=== PATIENT | female | born 1965 | race Caucasian/White ===

== ENCOUNTER 2016-12-12 04:01 | Observation (INO) | payer BC ==
[2016-12-12] MEDS ORDERED: NS 0.9% 1000 ML* 2,000 ML IV ONE (05:08)
[2016-12-12] MEDS ORDERED: Morphine INJ* 4 MG/ML 1 ML CARPUJECT IV ONE (05:08)
[2016-12-12] MEDS ORDERED: Ketorolac INJ* 30 MG/ML 1 ML VIAL IV ONE (05:08)
[2016-12-12] MEDS ORDERED: Ondansetron INJ* 2 MG/ML VIAL IV ONE (05:08)
[2016-12-12 05:53] LABS: Hematocrit 46 % (35-47); Hemoglobin 15.4 g/dl (12.0-16.0); Mean Corpuscular HGB Conc 34 g/dl (31-36); Mean Corpuscular Hemoglobin 32 pg (27-31); Mean Corpuscular Volume 93 fL (80-97); Mean Platelet Volume 7 um3 (7.4-10.4); Red Blood Count 4.89 10^6/ul (4.0-5.4); Red Cell Distribution Width 14 % (10.5-15); White Blood Count 19.5 10^3/ul (3.5-10.8)
[2016-12-12 06:07] LABS: Albumin 3.7 g/dL (3.2-5.2); BUN/Creatinine Ratio 7.9 (8-20); C Reactive Protein 6.17 mg/L (< 5.00); Calcium 7.9 mg/dL (8.6-10.3); EGFR African American 57.3 (>60); EGFR Non-African American 44.6 (>60); Globulin 2.5 g/dL (2-4); Potassium 3.4 mmol/L (3.5-5.0); Total Bilirubin 0.3 mg/dL (0.2-1.0); Total Protein 6.2 g/dL (6.4-8.9)
[2016-12-12] MEDS ORDERED: Gentamicin ADULT (*) 40 MG/ML VIAL IVPB ONE (07:20)
[2016-12-12 07:54] LABS: Urine Bacteria 1+ (Absent); Urine Bilirubin Negative (Negative); Urine Glucose Negative (Negative); Urine Nitrite Negative (Negative)
[2016-12-12] MEDS ORDERED: Ondansetron INJ* 2 MG/ML VIAL IV PRN ×2 (08:18→10:27)
[2016-12-12] MEDS ORDERED: Morphine INJ* 4 MG/ML 1 ML CARPUJECT IV PRN (08:19)
--- NOTE | 2016-12-12 08:28 | RAD ---
INDICATION: Left flank abdominal pain. COMPARISON: There are no prior studies available for comparison. TECHNIQUE: A CT scan of the abdomen and pelvis was performed without intravenous or oral contrast. Contiguous axial sections were obtained from the lung bases through the symphysis pubis. Images were reconstructed in the coronal and sagittal planes. FINDINGS: The lung bases are clear. No pleural effusion is present. The liver and spleen are within normal limits in size without significant focal abnormality on this noncontrast study. There are gallstones present. No gallbladder wall thickening or pericholecystic fluid is seen. The pancreas appears to be within normal limits. The adrenal glands and right kidney appear normal. There are 2 calculi in the lower pole of the left kidney measuring up to 4 mm in size. The left kidney is enlarged with perinephric stranding. There is dilatation of the calyces and renal pelvis to the level of a 8 mm calculus at the ureteropelvic junction. This is causing moderate hydronephrosis. No additional ureteral or bladder calculi are seen. The abdominal aorta is normal in caliber. There is mild to moderate calcific plaque present. No significant enlarged retroperitoneal lymph nodes are seen. The stomach, small and large bowel appear nondistended. The patient is status post appendectomy by history. There are few scattered diverticula. There is no evidence for diverticulitis or colitis. The uterus is anteverted and normal in size. No free intraperitoneal air or fluid is seen. No significant focal osseous abnormality is seen. IMPRESSION: 1. MODERATE LEFT HYDRONEPHROSIS SECONDARY TO A 8 MM CALCULUS AT THE URETEROPELVIC JUNCTION. THERE ARE 2 ADDITIONAL SMALLER CALCULI IN THE LOWER POLE OF THE LEFT KIDNEY. 2. CHOLELITHIASIS.
[2016-12-12] MEDS ORDERED: Omeprazole CAP* 20 MG PO SCH (08:30)
[2016-12-12] MEDS ORDERED: NS 0.9% 1000 ML* 1,000 ML IV SCH (08:30)
[2016-12-12] MEDS ORDERED: DiMENhydriNATE IV* 50 MG/ML VIAL IV PUSH PRN (10:27)
[2016-12-12] MEDS ORDERED: Acetaminophen TAB* 325 MG PO PRN (10:27)
[2016-12-12] MEDS ORDERED: fentaNYL* 50 MCG/ML 2 ML VIAL (100 MCG VIAL) IV PRN (10:27)
[2016-12-12] MEDS ORDERED: Buffered Lidocaine 0.9% SYRIN* 5 ML/SYR SYRINGE INTRADERM ONE (10:27)
[2016-12-12] MEDS ORDERED: PROCHLORPERAZINE INJ 5 MG/ML 2 ML VIAL IV PRN (10:27)
[2016-12-12] MEDS ORDERED: fentaNYL* 50 MCG/ML 2 ML VIAL (100 MCG VIAL) ONE (12:32)
[2016-12-12] MEDS ORDERED: Midazolam* 1 MG/ML 2 ML VIAL (2 MG) ONE (12:32)
[2016-12-12] MEDS ORDERED: Famotidine IV* 10 MG/ML 2 ML (20 mg) ONE (12:32)
--- NOTE | 2016-12-12 12:35 | HP ---
CC: Dr. Reyna * HISTORY AND PHYSICAL/DISCHARGE SUMMARY: DATE OF ADMISSION: 12/12/16 PRIMARY CARE PHYSICIAN: Dr. Reyna. CHIEF COMPLAINT: Left flank and abdominal pain. HISTORY OF PRESENT ILLNESS: Ms. Alcala is a 51-year-old female with past medical history of GERD, Malcolm's esophagus, chronic back pain, depression, anxiety, who presents to the hospital with acute onset of back and stomach pain. Patient states she was in her usual state of health. Last night, she went to bed, she woke up at 2 a.m. with left flank pain. Over the following 10 minutes, this worsened significantly and began to radiate and involve the abdomen diffusely. She reports associated nausea. No emesis. No fever or chills. Denies any blood in the urine. No history of renal stones. Due to significant pain, she came to the emergency room for further evaluation. In the ED, patient underwent a CT scan that showed mild left hydronephrosis and perinephric inflammation with a 9 mm left ureteral stone. Dr. Ponce was consulted, who plans to take the patient to the OR. Hospitalist service was consulted to assist in admitting the patient. PAST MEDICAL HISTORY: GERD, Malcolm's esophagus, depression, anxiety, chronic back pain. Reports a history of Lyme disease. PAST SURGICAL HISTORY: Appendectomy, rotator cuff surgery, deviated septum repair, cervical fusion in July of this year. HOME MEDICATIONS: 1. Flexeril 10 mg 3 times daily as needed for pain. 2. Bupropion 300 mg in the morning, 150 mg in the evening. 3. Nexium 40 mg once daily. 4. Xanax 0.25 mg 3 times daily as needed for anxiety. 5. Oxy 5/325 one tablet by mouth every 4 to 6 hours as needed for pain. FAMILY HISTORY: Significant for mother with hypertension, lung cancer, thyroid issues. Father with CVA, GA, hypertension, diabetes. Maternal aunt with esophageal cancer. SOCIAL HISTORY: The patient is a former smoker about a 14-pack year history, quit 12 years ago. Reports rare alcohol use. Denies any illicit drug use. ALLERGIES: Reports no known drug allergies. REVIEW OF SYSTEMS: A 12-point review of systems is negative except for that noted in the HPI. PHYSICAL EXAMINATION GENERAL: The patient is a middle-aged female, lying in bed, in no apparent distress. VITAL SIGNS: On admission, temperature 96.3, heart rate of 88, respiratory rate of 24, O2 saturation 100% on room air, blood pressure 157/90. HEENT: Head: Normocephalic, atraumatic. Eyes: Pupils are equal, round and reactive to light and accommodation. Anicteric sclerae. ENT: Dry mucous membranes. NECK: No cervical adenopathy. LUNGS: Clear to auscultation bilaterally. No wheezes, rales, or rhonchi. CARDIOVASCULAR: Regular rate and rhythm. S1 and S2 present. No murmurs, gallops, or rubs. ABDOMEN: Soft, nondistended. Some mild trace tenderness diffusely. Left CVA tenderness. Bowel sounds positive. EXTREMITIES: No cyanosis, clubbing, or edema. NEUROLOGIC: The patient is alert and oriented x3. No focal neurological deficits. SKIN: Warm, dry, and well perfused. DIAGNOSTIC STUDIES/LAB DATA: White blood cell count of 19.5, hematocrit of 46 , platelets of 293 with a left shift, 85% neutrophils, no bands. INR 0.87. Sodium 138, potassium 3.4, chloride of 109, carbon dioxide 24, BUN of 10, creatinine of 1.26, glucose of 115, lactic acid of 1.1, calcium of 7.9. LFTs are within normal limits. CRP is 6. UA with 2+ blood, 3+ rbc's, trace wbc's, negative leuk esterase, negative nitrite. CT abdomen and pelvis done. Formal read is pending; however, [facility] read mild left hydronephrosis and perinephric inflammation with a 9 mm left ureteral stone. ASSESSMENT AND PLAN: Left ureteral stone with obstructive uropathy in a 51-year - old female with a past medical history of gastroesophageal reflux disease, chronic back pain, Malcolm's esophagus, depression, anxiety. 1. Left ureteral stone. Dr. Ponce is aware. He ordered ceftriaxone and gentamicin for the patient. Plan is to take to the OR this morning, likely for stent placement and obstruction resolution. Patient does have significant leukocytosis; however, this may be a stress reaction. UA does not show any signs of infection. We will discuss with Dr. Ponce after the procedure if he feels like there is a possible infectious etiology and the patient needs to stay for additional IV antibiotics. Keep NPO for now. She received 2 L of IV fluid in the emergency room. We will continue at 100 cc per hour for now. Morphine p.r.n. for analgesia. Zofran p.r.n. for nausea. 2. Gastroesophageal reflux disease. Continue PPI. 3. Depression. Continue home bupropion once able to take p.o. 3. Chronic pain. We will use morphine while patient is hospitalized, can resume her home pain medications on discharge. 4. DVT prophylaxis. SCDs. 5. Code status. Patient is a full code. TIME SPENT: Total time spent on this admission 45 minutes with over half the time spent [id number] with the patient counseling and coordinating care. ADDENDUM: Patient apparently on long-term ABx by Dr. Reyna for lyme disease. Dr. Ponce successfully placed L ureteral stent and he did not appreciate any obvious purulence behind the stone. Feels that she can be managed with outpatient ABx as she had some bacteria present on UA. Will discharge home with Bactrim (holding other chronic ABx for Lyme disease at this time) for additional 5 days and will f/u in the clinic with Dr. Ponce for stent removal. [id number]/CPS #: [id number] PUSHPA
[2016-12-12] MEDS ORDERED: Iohexol 180 (CONTRAST) 10 ML SDV IV ONE (12:44)
[2016-12-12] MEDS ORDERED: buPROPion SR TAB.SR* 150 MG PO SCH ×2 (13:00→21:00)
[2016-12-12] MEDS ORDERED: Dexamethasone IV* 4 MG/ML 1 ML (4 MG) ONE (13:29)
[2016-12-12] MEDS ORDERED: Lidocaine 2% PF * 5 ML VIAL ONE (13:29)
[2016-12-12] MEDS ORDERED: Propofol* 10 MG/ML 20 ML BTL IV PUSH ONE (13:29)
[2016-12-12] MEDS ORDERED: Ketorolac INJ* 30 MG/ML 1 ML VIAL ONE (13:29)
--- NOTE | 2016-12-12 14:11 | RAD ---
INDICATION: Ureteral stent placement. COMPARISON: Comparison is made with a prior CT of the abdomen and pelvis from December 12, 2016. TECHNIQUE: 8 seconds of intermittent fluoroscopic guidance were provided and 4 spot films of the abdomen were centered on the left side. FINDINGS: There is partial opacification of the left renal collecting system. There is dilatation of the renal pelvis and calyces consistent with hydronephrosis. Subsequently there is placement of a double-J stent catheter on the left side which demonstrates normal course. IMPRESSION: INTRAOPERATIVE CONTROL FILMS. CPT II Codes: 6045F
--- NOTE | 2016-12-12 15:04 | RAD ---
INDICATION: Left renal calculi status post placement. COMPARISON: Comparison is made with a prior CT of the abdomen and pelvis from December 12, 2016. TECHNIQUE: A frontal supine film of the abdomen was obtained. FINDINGS: The small bowel and colon appear nondistended. There is a ureteral stent present on the left side which demonstrates normal course. There is a 6 mm calculus adjacent to the proximal portion of the stent catheter and a 3 mm calculus which projects over the lower pole of the left kidney. IMPRESSION: STATUS POST STENT PLACEMENT, LEFT URETERAL AND RENAL CALCULI.
[2016-12-12 16:17] VITALS: BP 159/85
--- NOTE | 2016-12-12 17:51 | CONS ---
CC: Dr. Shmuel Reyna; Dr. Bry Ponce * UROLOGY CONSULTATION: DATE OF CONSULT: 12/12/16 DIAGNOSES: 1. Left hydronephrosis. 2. Large obstructing calculus, left proximal ureter. 3. Left renal calculi. REQUESTING PHYSICIAN: Dr. Jaren Knowles. HISTORY OF PRESENT ILLNESS: Sonya Alcala is a 51-year-old lady, who presented to the emergency room with left flank pain and nausea. CT scan revealed fairly large calculus reported as 8 mm (but to my interpretation more, 10 to 12 mm) in the left proximal ureter with additional left renal calculi and left hydronephrosis. In addition, her white count is elevated to 19.5 and urine showed 1+ bacteria. She is being brought in for urgent left stent insertion to be followed in the near future at some point by lithotripsy. PAST MEDICAL HISTORY: Significant for: 1. Anxiety, depression. 2. Chronic back pain. 3. Lyme disease. PAST SURGICAL HISTORY: Significant for: 1. Recent cervical spine diskectomy and fusion. 2. Appendectomy. 3. Rhinoplasty. 4. Rotator cuff repair. MEDICATIONS ON ADMISSION: 1. Doxycycline 100 mg twice a day. 2. Erythromycin daily. 3. Flexeril 10 mg 3 times a day. 4. Nexium 40 mg daily. 5. Percocet p.r.n. 6. Wellbutrin SR 150 mg daily. 7. Xanax 0.25 mg p.r.n. 3 times a day. ALLERGIES: No known drug allergies. FAMILY HISTORY: Negative for stones. REVIEW OF SYSTEMS: She denies any chest pain or shortness of breath. There is no history of diabetes mellitus. PHYSICAL EXAM: Reveals a pleasant, uncomfortable appearing middle-aged lady. Blood pressure is 140/80, pulse 84 per minute, temperature 37.2. Cardiovascular Exam: Regular rate and rhythm. S1 and S2. Lungs are clear bilaterally. Abdomen is soft with left flank tenderness. DIAGNOSTIC STUDIES/LAB DATA: I reviewed the labs which revealed a white count of 19.5 and the urinalysis which showed 1+ bacteria. I also reviewed the CT scan and had a detailed discussion with Sonya Alcala regarding the findings on CT scan and the labs. PLAN: The plan is for urgent left stent insertion to be followed at some point in the future by lithotripsy once the infection has been adequately treated. [id number]/[facility] #: [id number] [facility]
--- NOTE | 2016-12-13 00:14 | OP ---
CC: Dr. Reyna * DATE OF OPERATION: 12/12/16 - ROOM #333 DATE OF : 63 SURGEON: Bry Ponce MD ANESTHESIOLOGIST: Dr. Issa. ANESTHESIA: General. PRE-OP DIAGNOSES: 1. Obstructing calculus, left proximal ureter. 2. Left hydronephrosis. 3. Left renal calculi. POST-OP DIAGNOSES: 1. Obstructing calculus, left proximal ureter. 2. Left hydronephrosis. 3. Left renal calculi. OPERATIVE PROCEDURE: Cystoscopy, left retrograde pyelogram, left ureteral calculus manipulation, and left stent insertion. COMPLICATIONS: None. STENT USED: 7-Fijian stent, left ureter. POSTOPERATIVE CONDITION: Stable. INDICATIONS: Sonya Alcala is a 51-year-old lady who was evaluated for an obstructing left proximal ureteral calculus. She is being brought in for urgent left stent insertion to be followed by lithotripsy. DESCRIPTION OF PROCEDURE: After induction of general anesthesia, the patient was placed in dorsal lithotomy position. Sequential compression devices were in place and functioning. Initial cystoscopy revealed a normal-appearing bladder with normally located right and left ureteral orifices. The bladder mucosa seemed a little bit friable with some oozing noted just with the filling of the bladder. A left retrograde pyelogram revealed fullness of the left collecting system and the calculus could be seen on the heel cutter film. The calculus was carefully manipulated proximally and a 7-Fijian stent was introduced and positioned under fluoroscopy with good proximal and distal positioning obtained. The bladder was emptied. The patient tolerated the procedure satisfactorily and was transferred back to recovery area in stable condition. The plan is to bring her back in a next week or two for lithotripsy as an outpatient. [id number]/[facility] #: [id number] MTDD
[2016-12-13] MEDS ORDERED: cefTRIAXone VIAL(*) 1,000 MG in NS 0.9% 50 ML* 50 ML IVPB SCH (08:00)
== END 2016-12-12 16:45 | disposition home or self-care (01) ==
LOC: ED 04:01 → SSU 08:04
PROVIDERS: ADMIT Hospitalist; ATTEND Hospitalist
DX: N13.2 Hydronephrosis with renal and ureteral calculous obstruction (principal); R10.32 Left lower quadrant pain; R11.0 Nausea; F41.8 Other specified anxiety disorders; M54.9 Dorsalgia, unspecified; A69.20 Lyme disease, unspecified; Z79.899 Other long term (current) drug therapy; Z79.2 Long term (current) use of antibiotics
CPT/HCPCS: 36415; 74000; 74176; 74420; 80053; 81003; 81015; 83605; 83690; 84484; 85025; 85610; 85730; 86140; 87086; 94760; 96374; 96375; 99284; A9270-GY; C1876; G0378; J0696; J1100; J1580; J1885; J2250; J2270; J2405; J2704; J3010

== ENCOUNTER 2016-12-20 12:40 | Day surgery (SDC) | payer BC ==
[~2016-12-20 12:40] MED LIST: Buffered Lidocaine 0.9% SYRIN* 5 ML/SYR SYRINGE INTRADERM ONE; Dexamethasone IV* 4 MG/ML 1 ML (4 MG) IV SLOW PU ONE; Famotidine IV* 10 MG/ML 2 ML (20 mg) IV ONE
[2016-12-20] MEDS ORDERED: cefTRIAXone(*) 2 GM ADDV.VIAL IVPB ONE (13:18)
[2016-12-20] MEDS ORDERED: Dexamethasone IV* 4 MG/ML 1 ML (4 MG) ONE (13:18)
[2016-12-20] MEDS ORDERED: Famotidine IV* 10 MG/ML 2 ML (20 mg) ONE (13:18)
[2016-12-20] MEDS ORDERED: Buffered Lidocaine 0.9% SYRIN* 5 ML/SYR SYRINGE ONE (13:18)
--- NOTE | 2016-12-20 13:43 | RAD ---
Indication: Renal calculus. Single view of the abdomen and straight calcification at the L2 level and in the lower pole of the left kidney. When compared to previous exam of December 12, 2016 no significant change is noted. IMPRESSION: Calcifications at the L2 level in the left ureter and overlying the lower pole of the left kidney.
[2016-12-20] MEDS ORDERED: fentaNYL* 50 MCG/ML 2 ML VIAL (100 MCG VIAL) ONE (13:48)
[2016-12-20] MEDS ORDERED: Midazolam* 1 MG/ML 2 ML VIAL (2 MG) ONE (13:48)
[2016-12-20] MEDS ORDERED: DiMENhydriNATE IV* 50 MG/ML VIAL IV PUSH PRN (14:12)
[2016-12-20] MEDS ORDERED: fentaNYL* 50 MCG/ML 2 ML VIAL (100 MCG VIAL) IV PRN (14:12)
[2016-12-20] MEDS ORDERED: Ondansetron INJ* 2 MG/ML VIAL ONE (14:42)
[2016-12-20] MEDS ORDERED: Propofol* 10 MG/ML 20 ML BTL IV PUSH ONE (14:42)
[2016-12-20 15:41] VITALS: BP 128/68
--- NOTE | 2016-12-20 16:19 | RAD ---
INDICATION: Left stent placement COMPARISON: December 20, 2016 TECHNIQUE: A single view of the abdomen is submitted. FINDINGS: Bones: There are no acute bony findings. Soft tissues: The soft tissues appear normal. The psoas margins are sharp. Bowel gas pattern: Normal Calcifications: There is a proximal left ureteral calculus unchanged in position. Other: The left stent is unchanged in position IMPRESSION: LEFT URETERAL CALCULUS AND STENT BOTH APPEARING UNCHANGED
--- NOTE | 2016-12-21 06:19 | OP ---
CC: Dr. Shmuel Reyna; Dr. Ponce* OPERATIVE SUMMARY: DATE OF OPERATION: 12/20/16 - [facility] DATE OF : 63 SURGEON: Bry Ponce MD ANESTHESIOLOGIST: Dr. Galeano. ANESTHESIA: General. PRE-OP DIAGNOSIS: Left renal calculi. POST-OP DIAGNOSIS: Left renal calculi. OPERATIVE PROCEDURE: Shockwave lithotripsy of left renal calculi. COMPLICATIONS: None. POSTOPERATIVE CONDITION: Stable. INDICATIONS: Sonya Alcala is a 51-year-old lady with a history of left renal calculi. She had undergone urgent stent insertion for an obstructing calculus in the left proximal ureter. In addition, she has small left renal calculi. DESCRIPTION OF PROCEDURE: After induction of general anesthesia, the patient was placed on the lithotripsy table in a supine position. The dominant calculus , which was in the area of the left ureteropelvic junction was localized using fluoroscopy. Shockwave lithotripsy was commenced at a rate of 90 shocks per minute. Periodic imaging revealed good localization and fragmentation and 2000 shocks were used for fragmentation of this calculus. Next, attention was directed towards additional small calculus in the mid-to- lower pole of the left kidney. This was localized using fluoroscopy and was targeted with 400 shocks. The patient tolerated the procedure satisfactorily and was transferred back to the recovery area in stable condition. [id number]/[facility] #: [id number] MTDD
== END 2016-12-20 15:51 | disposition home or self-care (01) ==
LOC: OR 12:40
PROVIDERS: ATTEND Urology
DX: N20.2 Calculus of kidney with calculus of ureter (principal); Z96.0 Presence of urogenital implants; F41.9 Anxiety disorder, unspecified; F32.9 Major depressive disorder, single episode, unspecified; G47.33 Obstructive sleep apnea (adult) (pediatric); Z87.891 Personal history of nicotine dependence; K22.70 Barrett's esophagus without dysplasia
CPT/HCPCS: 74000; 81025; J0696; J1100; J2250; J2405; J2704; J3010

== ENCOUNTER 2017-01-09 23:21 | Observation (INO) | payer BC ==
[2017-01-10] MEDS ORDERED: NS 0.9% 1000 ML* 1,000 ML IV ONE (01:28)
[2017-01-10] MEDS ORDERED: Ketorolac INJ* 30 MG/ML 1 ML VIAL IV PUSH ONE (01:28)
[2017-01-10 01:43] LABS: Hematocrit 46 % (35-47); Hemoglobin 15.4 g/dl (12.0-16.0); Mean Corpuscular HGB Conc 33 g/dl (31-36); Mean Corpuscular Hemoglobin 31 pg (27-31); Mean Corpuscular Volume 93 fL (80-97); Mean Platelet Volume 7 um3 (7.4-10.4); Red Blood Count 4.96 10^6/ul (4.0-5.4); Red Cell Distribution Width 13 % (10.5-15); White Blood Count 16.9 10^3/ul (3.5-10.8)
[2017-01-10 01:55] LABS: BUN/Creatinine Ratio 9.3 (8-20); Calcium 9.3 mg/dL (8.6-10.3); EGFR African American 68.5 (>60); EGFR Non-African American 53.3 (>60); Globulin 3.1 g/dL (2-4); Potassium 3.5 mmol/L (3.5-5.0); Total Bilirubin 0.4 mg/dL (0.2-1.0); Total Protein 7.1 g/dL (6.4-8.9)
[2017-01-10 02:11] LABS: Urine Bacteria Absent (Absent); Urine Bilirubin Negative (Negative); Urine Glucose Negative (Negative); Urine Nitrite Negative (Negative)
[2017-01-10] MEDS ORDERED: Piperacillin/Tazobac ADVAN(*) 3.375 GM in NS 0.9% 100 ML* 100 ML IVPB ONE ×2 (03:09→03:11)
[2017-01-10] MEDS ORDERED: Acetaminophen TAB* 325 MG PO PRN (03:11)
[2017-01-10] MEDS ORDERED: Morphine INJ* 2 MG/ML 1 ML SYRINGE (TWO MG - NEW SYRINGE VERSION) IV PRN ×2 (03:15→06:00)
[2017-01-10] MEDS: Ondansetron INJ* 2 MG/ML VIAL IV PRN ×2 (03:35→09:38)
--- NOTE | 2017-01-10 03:53 | ED ---
Luanne Winston Edward, scribed for Maria Elena Baugh MD on 01/10/17 at 0033 . Abdominal Pain/Female - HPI Summary HPI Summary: 51 y/o female presents to the ED c/o severe ABD pain in the epigastric region and the RUQ for the past 3 days. The pain radiates to the back. The pain is aggravated with food, rated . PMHx kidney stones for the past month. Associated sx: constipation, nausea, fatigue, DUARTE, neck pain, back pain, mild dysuria (only at the end of urination). - History of Current Complaint Chief Complaint: EDAbdPain Stated Complaint: ABD AND BACK PAIN Time Seen by Provider: 01/10/17 00:32 Hx Obtained From: Patient Onset/Duration: Lasting Days, Still Present Severity Currently: Severe Pain Intensity: 10 Pain Scale Used: 0-10 Numeric Location: Discrete At: LUQ, Epigastric Radiates: Yes Radiates to: Back Aggravating Factor(s): Food Alleviating Factor(s): Nothing Associated Signs and Symptoms: Positive: Constipation, Nausea, Other: - fatigue , neck pain, back pain Allergies/Adverse Reactions: Allergies Allergy/AdvReac Type Severity Reaction Status Date / Time Bee Venom Allergy Intermediate massive Verified 01/09/17 23:27 swelling, hives PMH/Surg Hx/FS Hx/Imm Hx Previously Healthy: No Endocrine/Hematology History: Denies: Hx Diabetes, Hx Thyroid Disease Cardiovascular History: Denies: Hx Hypertension, Hx Pacemaker/ICD Respiratory History: Reports: Hx Sleep Apnea - very mild - no machine, Other Respiratory Problems/Disorders Denies: Hx Chronic Obstructive Pulmonary Disease (COPD) GI History: Reports: Hx Gastroesophageal Reflux Disease, Hx Hiatal Hernia History: Reports: Hx Kidney Stones - LEFT 11/2106 Denies: Hx Renal Disease Musculoskeletal History: Reports: Hx Arthritis, Hx Tendonitis - in the past Sensory History: Reports: Hx Contacts or Glasses - both-will wear glasses day of surgery Denies: Hx Hearing Aid Opthamlomology History: Reports: Hx Contacts or Glasses - both-will wear glasses day of surgery Neurological History: Reports: Hx Migraine - none for a while Denies: Hx Dementia, Hx Seizures Psychiatric History: Reports: Hx Anxiety, Hx Depression Denies: Hx Panic Disorder - Cancer History Hx Chemotherapy: No - Surgical History Surgery Procedure, Year, and Place: RINOPLASTY. appendectomy. right rotator cuff repair. cervical fusion 07/2016. cystoscopy, left retrograde pylegram, left ureteral calculus, left stent insertion 11/2016 Hx Anesthesia Reactions: Yes - sometimes slow to wake up - Immunization History Date of Tetanus Vaccine: ukn Infectious Disease History: No Infectious Disease History: Denies: Hx Hepatitis, Hx Human Immunodeficiency Virus (HIV), Traveled Outside the [place] in Last 30 Days - Social History Alcohol Use: Rare Hx Substance Use: No Substance Use Type: Reports: None Hx Tobacco Use: Yes Smoking Status (MU): Former Smoker Amount Used/How Often: smoked on and off 20 years Review of Systems Positive: Fatigue Eyes: Negative ENT: Negative Cardiovascular: Negative Respiratory: Negative Positive: Abdominal Pain, Nausea, Other - Constipation Positive: Arthralgia - Back pain, neck pain Skin: Negative Positive: Headache Psychological: Normal All Other Systems Reviewed And Are Negative: No Physical Exam - Summary Physical Exam Summary: Appearance: Alert, conversive, nontoxic appearing Skin: Warm, dry, no mottling, no rashes, no contusions HEENT: EOMI, PERRL, moist mucous membranes Neck: No masses on the neck, supple Respiratory: Clear to auscultation, breath sounds present, no rales, no rhonchi , no wheezes Cardiovascular: RRR, pulses are symmetrical in both lower and upper extremities Abdomen: Soft, tenderness across the upper abdomen and at the R flank. Bowel Sounds: Present Musculoskeletal: No CVA tenderness, no obvious deformity, moving all extremities in a grossly normal manner Neurological: A&Ox3, CN II-XII Intact, moving all extremities symmetrically Psychiatric: Normal affect and mood Triage Information Reviewed: Yes Vital Signs On Initial Exam: Initial Vitals Temp Pulse Resp BP Pulse Ox 97.1 F 98 22 181/79 100 01/09/17 23:23 01/09/17 23:23 01/09/17 23:23 01/09/17 23:23 01/09/17 23:23 Vital Signs Reviewed: Yes - [place] Coma Scale Coma Scale Total: 15 Diagnostics - Vital Signs Vital Signs Temp Pulse Resp BP Pulse Ox 01/09/17 23:23 97.1 F 98 22 181/79 100 - Laboratory Lab Results: Lab Results 01/10/17 01/10/17 01/10/17 Range/Units 01:30 01:30 01:30 WBC 16.9 H (3.5-10.8) 10^3/ul RBC 4.96 (4.0-5.4) 10^6/ul Hgb 15.4 (12.0-16.0) g/dl Hct 46 (35-47) % MCV 93 (80-97) fL MCH 31 (27-31) pg MCHC 33 (31-36) g/dl RDW 13 (10.5-15) % Plt Count 363 (150-450) 10^3/ul MPV 7 L (7.4-10.4) um3 Neut % (Auto) 73.5 (38-83) % Lymph % (Auto) 17.6 L (25-47) % [place] % (Auto) 6.4 (1-9) % Eos % (Auto) 1.6 (0-6) % Baso % (Auto) 0.9 (0-2) % Absolute Neuts (auto) 12.5 H (1.5-7.7) 10^3/ul Absolute Lymphs (auto) 3.0 (1.0-4.8) 10^3/ul Absolute Monos (auto) 1.1 H (0-0.8) 10^3/ul Absolute Eos (auto) 0.3 (0-0.6) 10^3/ul Absolute Basos (auto) 0.2 (0-0.2) 10^3/ul Absolute Nucleated RBC 0.01 10^3/ul Nucleated RBC % 0.1 Sodium 134 (133-145) mmol/L Potassium 3.5 (3.5-5.0) mmol/L Chloride 102 (101-111) mmol/L Carbon Dioxide 26 (22-32) mmol/L Anion Gap 6 (2-11) mmol/L BUN 10 (6-24) mg/dL Creatinine 1.08 H (0.51-0.95) mg/dL Est GFR ( Amer) 68.5 (>60) Est GFR (Non-Af Amer) 53.3 (>60) BUN/Creatinine Ratio 9.3 (8-20) Glucose 121 H (70-100) mg/dL Calcium 9.3 (8.6-10.3) mg/dL Total Bilirubin 0.40 (0.2-1.0) mg/dL AST 14 (13-39) U/L ALT 17 (7-52) U/L Alkaline Phosphatase 64 (34-104) U/L Total Protein 7.1 (6.4-8.9) g/dL Albumin 4.0 (3.2-5.2) g/dL Globulin 3.1 (2-4) g/dL Albumin/Globulin Ratio 1.3 (1-3) Lipase 27 (11.0-82.0) U/L Urine Color Yellow Urine Appearance Cloudy Urine pH 7.0 (5-9) Ur Specific [place] 1.012 (1.010-1.030) Urine Protein 1+(30 mg/dl) H (Negative) Urine Ketones Negative (Negative) Urine Blood 2+ H (Negative) Urine Nitrate Negative (Negative) Urine Bilirubin Negative (Negative) Urine Urobilinogen Negative (Negative) Ur Leukocyte Esterase 3+ H (Negative) Urine WBC (Auto) 3+(>20/hpf) H (Absent) Urine RBC (Auto) 3+(>10/hpf) H (Absent) Urine Bacteria Absent (Absent) Urine Glucose Negative (Negative) Result Diagrams: 01/10/17 01:30 01/10/17 01:30 Lab Statement: Any lab studies that have been ordered have been reviewed, and results considered in the medical decision making process. - CT ABD/PEL CT CT Interpretation: Positive (See Comments) - Acute cholecystitis without biliary duct dilation. Resolution of prior left hydronephorsis and ureteral sonte status post stent placement. Tiny left renal stones. CT Interpretation Completed By: Radiologist - ED PHYSICIAN REVIEWS AND AGREES Re-Evaluation - Re-Evaluation 1 Re-Evaluation Time: 02:54 Comment: Discuss CT results Abdominal Pain Fem Course/Dx - Course Course Of Treatment: 51 y/o female presents to the ED c/o severe ABD pain in the epigastric region and the LUQ for the past 3 days. The pain radiates to the back. The pain is aggravated with food, rated . PMHx kidney stones for the past month. Associated sx: constipation, nausea, fatigue, DUARTE, neck pain, back pain, mild dysuria (only at the end of urination). Test results show WBC 16.9. ABD/ PEL CT SHOWS Acute cholecystitis without biliary duct dilation. Resolution of prior left hydronephorsis and ureteral sonte status post stent placement. Tiny left renal stones. Spoke with Dr. Apolinar Kwan @ 03:07 who will admit. - Diagnoses Provider Diagnoses: Acute cholecystitis - Provider Notifications Discussed Care Of Patient With: Apolinar Kwan Time Discussed With Above Provider: 03:07 Instructed by Provider To: Admit As Inpatient Discharge - Discharge Plan Condition: Stable Disposition: ADMITTED TO [facility] Referrals: Shmuel Reyna MD [Primary Care Provider] - The documentation as recorded by the Luanne griffin Edward accurately reflects the service I personally performed and the decisions made by Amauri turpin Norma, MD.
[2017-01-10] MEDS: NS 0.9% 1000 ML* 1,000 ML IV SCH ×2 (04:30→17:05)
[2017-01-10] MEDS ORDERED: Morphine INJ* 2 MG/ML 1 ML SYRINGE (TWO MG - NEW SYRINGE VERSION) ONE (05:26)
[2017-01-10] MEDS ORDERED: PROCHLORPERAZINE INJ 5 MG/ML 2 ML VIAL IV ONE (06:21)
[2017-01-10] MEDS ORDERED: PROCHLORPERAZINE INJ 5 MG/ML 2 ML VIAL ONE (06:23)
--- NOTE | 2017-01-10 08:03 | RAD ---
INDICATION: Right flank pain COMPARISON: CT December 12, 2016 TECHNIQUE: Noncontrast axial source images were acquired from the level hemidiaphragms to the symphysis pubis as part of CT imaging for renal stone. Lung bases: The lung bases are clear. Liver: The liver is normal in size. Noncontrast imaging shows no evidence of a hepatic mass or ductal dilatation. Gallbladder: The gallbladder is distended. There is mild gallbladder wall thickening. There is a gallstone in the neck of the gallbladder. Spleen: The spleen is normal in size. The noncontrast CT appearance is normal. Pancreas: Noncontrast imaging shows no pancreatic mass or ductal dilitation. Adrenal glands: No masses are identified. Kidneys/Bladder: There is left ureteral stent. There is upper pole left-sided nephrolithiasis with 2 calculi both in the 3 to 4 mm range. There are no other medication to be urinary significance. There is no hydronephrosis. There are no bladder calculi. Adenopathy: There is no evidence of intraperitoneal or retroperitoneal adenopathy. Evaluation is limited without oral contrast. Fluid collections: There are no free or localized fluid collections. Vessels: The aorta and iliac vessels are normal in caliber. There are no significant atherosclerotic changes. The IVC appears normal Pelvic organs: The uterus and adnexa appear normal GI tract: Evaluation of the bowel is limited without oral contrast. The stomach, small bowel, and lower GI tract appear grossly normal. There are no obstructive findings. The appendix is not well visualized. There is no periappendiceal inflammatory change. Soft tissues: No soft tissue abnormalities of the extraperitoneal abdomen or pelvis are identified. Osseous structures: There are no acute osseous findings. IMPRESSION: 1. Distended gallbladder with gallbladder wall thickening and cholelithiasis suggestive of acute cholecystitis. 2. Left-sided nephrolithiasis. Left ureteral stent in expected position. No hydronephrosis.
[2017-01-10] MEDS: Piperacillin/Tazobac ADVAN(*) 3.375 GM in NS 0.9% 100 ML* 100 ML IVPB SCH ×2 (09:12→17:04)
--- NOTE | 2017-01-10 09:54 | RAD ---
HISTORY: Gallstones, right upper quadrant pain COMPARISONS: CT dated January 10, 2017 TECHNIQUE: Multiple transverse and longitudinal ultrasound images were obtained of the right upper quadrant of the abdomen using grayscale and color Doppler imaging. FINDINGS: LIVER: The liver is normal in shape, size, contour, and echogenicity. There are no focal parenchymal masses. There is normal hepatopedal flow of the portal vein on Doppler imaging. BILIARY TREE: There is no intrahepatic or extrahepatic biliary dilatation. The common duct measures 0.5 cm. GALLBLADDER: The gallbladder is distended. There is shadowing echogenic focus consistent with a gallstone. There is a nonshadowing echogenic focus consistent with gallbladder wall polyp measuring approximately 0.9 cm.. There is no pericholecystic fluid, or sonographic Yu sign. PANCREAS: The head of the pancreas is unremarkable. The tail of the pancreas is not well visualized secondary to overlying bowel gas. RIGHT KIDNEY: The right kidney is normal in shape, size, contour, and echogenicity. There is no hydronephrosis or nephrolithiasis. The right kidney measures 9.9 x 4.1 x 3.4 cm. AORTA AND IVC: The aorta and IVC are unremarkable. FLUID: There are no pleural effusions. There is no free fluid within the hepatorenal recess. OTHER FINDINGS: None. IMPRESSION: 1. CHOLELITHIASIS. 2. 0.9 CM GALLBLADDER WALL POLYP.
--- NOTE | 2017-01-10 10:30 | HP ---
AMENDED REPORT NOW INCLUDES COSIGNER DESIGNATION - ESIGNED BEFORE ADJUSTMENT CC: Dr. Shmuel Reyna * HISTORY AND PHYSICAL: DATE OF ADMISSION: 01/10/17 PATIENT OF: Dr. Apolinar Kwan * (DICTATED BY BRADLEY ALFORD) REASON FOR ADMISSION: Epigastric and right upper quadrant abdominal pain. HISTORY OF PRESENT ILLNESS: Mrs. Alcala is a pleasant 51-year-old female who presented to the emergency room in the second mate hours of 01/10/17 with complaints of worsening epigastric pain. Patient notes that her pain started roughly 3 days ago, was localized to epigastric and right upper quadrant area. The patient has gotten progressively worse and she could not tolerate it anymore for which she presented to the emergency room for further evaluation. She described it as a dull aching pain with sharp episodes, rated up to 10/10 on the pain scale, localized to the epigastric and right upper quadrant area, with radiation to her right flank and right back. Pain is definitely aggravated with food, which she cannot tolerate anymore, described associated nausea and only 1 episode of vomiting upon admission. She denies any fever, chills, changes in bowel habits or changes in the color of stool or urine. She does have a history of longstanding constipation for which she takes Dulcolax on occasion and trying to increase her fiber and fluid intake with diet. She was hospitalized twice in the last week due to history of left nephrolithiasis for which she had 2 stents placed as well as laser lithotripsy last week. She denies any pain on her right or left flank. She denies any dysuria, hematuria or urinary frequency. She was evaluated in the emergency room and had a CT scan of the abdomen and pelvis that revealed evidence of dilated thickened walled gallbladder as well as a leukocytosis for which we were asked to see the patient for further evaluation of cholecystitis. Patient was admitted under surgical services and she was seen this morning for reevaluation of her pain. PAST MEDICAL HISTORY: Significant for nephrolithiasis for which she had 2 stents placed in the last month. She denies any history of heart, liver or lung disease. Also GERD. PAST SURGICAL HISTORY: Significant for an open appendectomy at age 6 as well as 2 ureteroscopy with stent placement and left urethral lithotripsy twice in the last month. CURRENT MEDICATIONS: Her medications at home include: 1. Xanax 0.25 p.o. t.i.d. as needed for anxiety. 2. Wellbutrin 150 mg p.o. daily. 3. Flexeril 10 mg p.o. q.8 hours p.r.n. for muscle spasm. 4. Nexium 40 mg p.o. daily. 5. Hydrocodone/acetaminophen 1 tablet q.4 hours as needed for pain. 6. Bactrim DS 1 tablet p.o. b.i.d. ALLERGIES: She is allergic to BEE VENOM. She denies any drug allergies. FAMILY HISTORY: She denies any family history of gallbladder disease or colorectal malignancies. SOCIAL HISTORY: Patient never smoked. She denies alcohol intake and caffein intake is minimal. She is a retail center receptionist, works in a medical office. REVIEW OF SYSTEMS: See HPI, otherwise negative. She denies any headache, dizziness, blurred vision or double vision. No sore throat, cough, wheezing, or shortness of breath. She denies any chest pain, palpitations, or ankle swelling. No back pain, flank pain, dysuria, hematuria, or urinary frequency. She admits to epigastric and right upper quadrant abdominal pain, seem to be worse post prandial, with associated nausea and only 1 episode of vomiting, but denies any recent changes in bowel habits or the color of the stool or urine. No fever, chills or night sweats or recent weight loss. PHYSICAL EXAMINATION GENERAL: She is a pleasant, healthy-appearing middle-aged female, appears a little uncomfortable, but in no acute distress or discomfort at the time of admission. VITAL SIGNS: Her vitals today revealed a temperature of 97.9, pulse of 95, respiration of 16, blood pressure of 131/65 and O2 sat of 99% on room air. HEENT: Sclerae are anicteric. PERRLA. EOMs intact. Head is normocephalic, atraumatic. Oropharynx is pink and moist, with no exudate. NECK: Supple. Trachea midline. No cervical adenopathy, thyromegaly or JVD. LUNGS: Clear to auscultation bilaterally. HEART: Regular rate and rhythm. Normal S1 and S2, without rubs, murmurs, or gallops. BACK: With normal curvature. No CVA tenderness. BREAST EXAM: Deferred at this time. ABDOMEN: Soft, nondistended. There is moderate epigastric and right upper quadrant tenderness noted with light palpation. There is slight guarding on exam, but no rigidity or rebound tenderness. There is no hernias, masses or hepatosplenomegaly. An old well-healed right lower quadrant scar from previous appendectomy noted, and no evidence of ventral hernia. Yu sign was positive. EXTREMITIES: Without cyanosis, clubbing or edema. RECTAL: Deferred at this time. NEUROLOGIC: Grossly intact. LABORATORY DATA: CBC earlier this morning revealed leukocytosis with white count of 16,900, hemoglobin 15.4, hematocrit 46, and platelets of 363. Her chemistry was essentially within normal limits with normal LFTs and lipase. Urine showed 2+ blood and 1+ protein, as well as 3+ leukocytes in her urine. ACCESSORY DIAGNOSTIC DATA: As mentioned above, patient had a CT scan of the abdomen and pelvis earlier today that revealed a distended thick-walled gallbladder with evidence of cholelithiasis as well as a left-sided nephrolithiasis with left ureteral stent in place and no evidence of hydronephrosis. IMPRESSION: A 51-year-old female with signs and symptoms as well as CT scan findings consistent with acute cholecystitis with cholelithiasis. PLAN: We went on and discussed with the patient proceeding with a laparoscopic cholecystectomy. The rationale, indication, risks and benefits of surgery were discussed with her today. Risks include, but not limited to, infection, bleeding or injury to adjacent structures. She understood and wishes to proceed with surgery as outlined. Patient has been kept n.p.o. and covered prophylactically with antibiotics. She will be taken to the operating room hopefully later this morning or early afternoon in anticipated laparoscopic cholecystectomy and we will follow her up accordingly. BRADLEY ALFORD [id number]/[facility] #: [id number] [place]
[2017-01-10 11:23] LABS: Manual Entry Verification CAS0014; UR Preg Internal Control QC Line Present
--- NOTE | 2017-01-10 11:38 | PN ---
Progress Note - Progress Note Date of Service: 01/10/17 SOAP: Subjective: Patient seen and examined earlier this morning She developed epigastric and right upper quadrant pain 2-3 days ago which worsened over the past 24 hours She has had no fevers, shakes or chills. She has been keeping liquids down and has had no lower abdominal pain-her pain does radiated into her right back She recently had a left ureteral stent place by Dr. Ponce last week for kidney stones and has been doing well from this standpoint. WBC [address] scan shows gallstones with gallbladder wall thickening consistent with acute calculous cholecystitis Objective: Temp Pulse Resp BP Pulse Ox 97.5 F 100 20 134/72 99 01/10/17 09:31 01/10/17 09:31 01/10/17 10:40 01/10/17 09:31 01/10/17 04:45 PEX: Comfortable Abd is soft and non-distended. She has tenderness in the right upper quadrant with some guarding, no peritoneal signs. No lower abdominal pain Laboratory Results - last 24 hr 01/10/17 01/10/17 01/10/17 01:30 01:30 01:30 WBC 16.9 H RBC 4.96 Hgb 15.4 Hct 46 MCV 93 MCH 31 MCHC 33 RDW 13 Plt Count 363 MPV 7 L Neut % (Auto) 73.5 Lymph % (Auto) 17.6 L [place] % (Auto) 6.4 Eos % (Auto) 1.6 Baso % (Auto) 0.9 Absolute Neuts (auto) 12.5 H Absolute Lymphs (auto) 3.0 Absolute Monos (auto) 1.1 H Absolute Eos (auto) 0.3 Absolute Basos (auto) 0.2 Absolute Nucleated RBC 0.01 Nucleated RBC % 0.1 Sodium 134 Potassium 3.5 Chloride 102 Carbon Dioxide 26 Anion Gap 6 BUN 10 Creatinine 1.08 H Est GFR ( Amer) 68.5 Est GFR (Non-Af Amer) 53.3 BUN/Creatinine Ratio 9.3 Glucose 121 H Calcium 9.3 Total Bilirubin 0.40 AST 14 ALT 17 Alkaline Phosphatase 64 Total Protein 7.1 Albumin 4.0 Globulin 3.1 Albumin/Globulin Ratio 1.3 Lipase 27 Urine Color Yellow Urine Appearance Cloudy Urine pH 7.0 Ur Specific [place] 1.012 Urine Protein 1+(30 mg/dl) H Urine Ketones Negative Urine Blood 2+ H Urine Nitrate Negative Urine Bilirubin Negative Urine Urobilinogen Negative Ur Leukocyte Esterase 3+ H Urine WBC (Auto) 3+(>20/hpf) H Urine RBC (Auto) 3+(>10/hpf) H Urine Bacteria Absent Urine Glucose Negative Urine Test 01/10/17 09:55 WBC RBC Hgb Hct MCV MCH MCHC RDW Plt Count MPV Neut % (Auto) Lymph % (Auto) [place] % (Auto) Eos % (Auto) Baso % (Auto) Absolute Neuts (auto) Absolute Lymphs (auto) Absolute Monos (auto) Absolute Eos (auto) Absolute Basos (auto) Absolute Nucleated RBC Nucleated RBC % Sodium Potassium Chloride Carbon Dioxide Anion Gap BUN Creatinine Est GFR ( Amer) Est GFR (Non-Af Amer) BUN/Creatinine Ratio Glucose Calcium Total Bilirubin AST ALT Alkaline Phosphatase Total Protein Albumin Globulin Albumin/Globulin Ratio Lipase Urine Color Urine Appearance Urine pH Ur Specific [place] Urine Protein Urine Ketones Urine Blood Urine Nitrate Urine Bilirubin Urine Urobilinogen Ur Leukocyte Esterase Urine WBC (Auto) Urine RBC (Auto) Urine Bacteria Urine Glucose Urine Test Negative US and CT scan images reviewed Assessment: Acute calculous cholecystitis Plan: I recommend laparoscopic cholecystectomy today for optimal treatment. The procedure was discussed with her including the alternatives of non-operative management. After our discussion, she would like to proceed with surgery. Laparoscopic cholecystectomy. The procedure was discussed and the risks of, but not limited to, of bleeding, infection, abscess, injury to peritoneal and retroperitoneal structures, bile leak, common bile duct injury, open procedure, GA/DVT/PE were all explained.
[2017-01-10] MEDS ORDERED: Bupivacaine 0.5% SDV PF* 30 ML VIAL ONE (12:03)
[2017-01-10] MEDS ORDERED: Bupivacaine 0.25% SDV* 30 ML ONE (12:23)
[2017-01-10] MEDS ORDERED: Ondansetron INJ* 2 MG/ML VIAL ONE (12:57)
[2017-01-10] MEDS ORDERED: Lidocaine 2% PF * 5 ML VIAL ONE (12:57)
[2017-01-10] MEDS ORDERED: Dexamethasone IV* 4 MG/ML 1 ML (4 MG) ONE (12:57)
[2017-01-10] MEDS ORDERED: Ketorolac INJ* 30 MG/ML 1 ML VIAL ONE (12:57)
[2017-01-10] MEDS ORDERED: Propofol* 10 MG/ML 20 ML BTL IV PUSH ONE (12:57)
[2017-01-10] MEDS ORDERED: KETAMINE HCL* 50 MG/ML 10 ML VIAL ONE (12:58)
[2017-01-10] MEDS ORDERED: fentaNYL* 50 MCG/ML 2 ML VIAL (100 MCG VIAL) ONE ×4 (12:58→15:44)
[2017-01-10] MEDS ORDERED: Cisatracurium* 2 MG/ML MDV 5 ML ONE (12:58)
[2017-01-10] MEDS ORDERED: Midazolam* 1 MG/ML 5 ML VIAL (5 MG) ONE (12:58)
[2017-01-10] MEDS ORDERED: EPHEDrine (Pressors)* 50 MG/ML VIAL ONE (13:26)
[2017-01-10] MEDS ORDERED: Famotidine IV* 10 MG/ML 2 ML (20 mg) ONE (13:37)
[2017-01-10] MEDS ORDERED: Ondansetron INJ* 2 MG/ML VIAL IV PRN (14:02)
--- NOTE | 2017-01-10 14:53 | PN ---
Progress Note - Progress Note Date of Service: 01/10/17 Note: Brief Operative Note: Pre-op: Acute calculus cholecystitis Post-op: Same Procedure: Laparoscopic cholecystectomy Surgeon: Dr. Kwan Hog Killer: BRADLEY Salgado Anaesthesia: Dr. Erma BISHOP EBL: Minimal Fluids: LR 1000 cc Catheter: None Drains: None Specimen: Gallbladder Findings: See dictated op note
[2017-01-10] MEDS ORDERED: HYDROcodone/ACETAMIN 5-325 MG* 1 TAB PO PRN (14:55)
[2017-01-10] MEDS ORDERED: ALPRAZolam TAB* 0.25 MG PO PRN (14:55)
[2017-01-10] MEDS ORDERED: Cyclobenzaprine TAB* 10 MG PO PRN (14:55)
[2017-01-10] MEDS: fentaNYL* 50 MCG/ML 2 ML VIAL (100 MCG VIAL) IV PRN ×3 (15:37→15:50)
[2017-01-10] MEDS ORDERED: buPROPion SR TAB.SR* 150 MG PO SCH (17:00)
[2017-01-10] MEDS: Ketorolac INJ* 30 MG/ML 1 ML VIAL IV PUSH PRN (17:15)
[2017-01-10] MEDS: Sulfamethox/Trimethoprim DS 800/160* TAB PO SCH (20:34)
[2017-01-10] MEDS: oxyCODONE/Acetamin 5/325 MG* TAB PO PRN (20:34)
[2017-01-11] MEDS: Ketorolac INJ* 30 MG/ML 1 ML VIAL IV PUSH PRN ×2 (00:27→07:29)
[2017-01-11] MEDS: Piperacillin/Tazobac ADVAN(*) 3.375 GM in NS 0.9% 100 ML* 100 ML IVPB SCH ×2 (00:27→07:31)
[2017-01-11] MEDS: Ondansetron INJ* 2 MG/ML VIAL IV PRN ×2 (00:27→13:13)
[2017-01-11] MEDS: NS 0.9% 1000 ML* 1,000 ML IV SCH ×2 (00:37→07:28)
--- NOTE | 2017-01-11 05:56 | OP ---
CC: Dr. Reyna's office, [facility] * DATE OF OPERATION: 01/10/17 - ROOM #334 DATE OF : 63 SURGEON: Apolinar Kwan MD JUNIOR UNDERWRITER: BRADLEY Kemp ANESTHESIOLOGIST: Dr. Ritchie. ANESTHESIA: General with local. PRE-OP DIAGNOSIS: Acute calculus cholecystitis. POST-OP DIAGNOSIS: Acute calculus cholecystitis. OPERATIVE PROCEDURE: Laparoscopic cholecystectomy. ESTIMATED BLOOD LOSS: Minimal. IV FLUIDS: 1 L of crystalloid. SPECIMEN: Gallbladder. DRAINS: None. WOUND CLASSIFICATION: II. FINDINGS: Acute calculous cholecystitis with edematous gallbladder wall, pericholecystic fluid. BRIEF HISTORY: Ms. Sonya Alcala is a 51-year-old woman who presented to the emergency room and subsequently admitted to the surgical service with 2 to 3 days of epigastric and right upper quadrant abdominal discomfort. She has not had similar pain in the past, has not been told she had gallbladder disease. She is noted to have leukocytosis and a CT scan which showed gallstones in the neck of the gallbladder with a distended gallbladder with a thickened wall. There are no other acute findings. Ultrasound confirmed thickened wall as well as a shadowing stone in the neck of the gallbladder. After seeing the patient and admitting her, felt that she has acute calculous cholecystitis and recommended she undergo a laparoscopic cholecystectomy. The procedure was discussed with her and the risks of it, but not limited to bleeding, infection, intraabdominal abscess formation, injury to peritoneal and retroperitoneal structures, possibility of the common bile duct injury requiring further reconstruction, possibility of an open procedure, bile leak, and the risks of general anesthesia and deep vein thrombosis were all explained. DESCRIPTION OF PROCEDURE: Written informed consent was obtained, preoperative antibiotics were administered, and the abdomen was marked with indelible ink. The patient was taken to the operating room, placed in the supine position. Sequential compression devices and a warming blanket were applied. General anesthesia was administered. The abdomen was prepped and draped in the usual sterile fashion. Time-out verification was completed. Next, a small transverse incision was made just above the umbilicus in the midline. Peritoneal cavity was entered under direct vision. A 12-mm blunt port was inserted and the abdomen was insufflated to 15 mmHg. Under direct vision, an 11 mm epigastric port and two 5 mm ports were placed in the right side of the abdominal wall. The gallbladder was identified. Its wall was edematous and grayish in color with acute omental adhesions to the gallbladder. The liver appeared to be normal. The gallbladder itself was quite distended. The appearance was that of acute calculous cholecystitis. We were able to grasp the gallbladder and elevated it up over the liver. The omental adhesions from the inflammatory process were taken down using sharp dissection as well as cautery and infundibulum of the gallbladder was then grasped. There was a thickened edematous peritoneum,was taken down using the hook cautery along the medial and lateral aspects of the gallbladder, and identified the cystic duct and artery as they entered the gallbladder. I took a considerable portion of the inferior part of the gallbladder off the liver bed using a critical view technique to assure myself of these 2 structures and these 2 structures only that were entering the gallbladder itself. The cystic duct was of normal caliber and this was triply clipped and divided. I also doubly clipped the cystic artery and this was divided. The gallbladder was then removed from the liver bed using a cautery, placed in EndoCatch bag. Hemostasis above the liver bed was controlled with cautery. The gallbladder was then removed from the umbilical port with an EndoCatch bag. Liver bed was then irrigated. Hemostasis was assured. There were no bile leaks. All ports were removed under direct vision of the camera. There was no abdominal wall bleeding. The umbilical fascia was closed with interrupted 0 Polysorb suture. The skin at all 4 incisions were approximated with subcuticular 4-0 Polysorb sutures. Steri-Strips were applied. The patient tolerated the procedure well, was taken to the recovery room in stable condition. [id number]/[facility] #: [id number] [facility] CENTERIrving
[2017-01-11] MEDS ORDERED: buPROPion TAB* 100 MG PO SCH (09:00)
[2017-01-11] MEDS ORDERED: Omeprazole CAP* 20 MG PO SCH (09:00)
[2017-01-11] MEDS: Sulfamethox/Trimethoprim DS 800/160* TAB PO SCH (09:33)
[2017-01-11] MEDS: oxyCODONE/Acetamin 5/325 MG* TAB PO PRN (11:18)
[2017-01-11 13:23] VITALS: BP 166/88
--- NOTE | 2017-01-11 13:24 | PN ---
Progress Note - Progress Note Date of Service: 01/11/17 SOAP: Subjective: Feels better today however she has some nausea after taking a Percocet this morning Did not go home last night as she had some nausea and pain. Urinating OK and ambulating well Pain is being controlled with toradol and narcotics Objective: Temp Pulse Resp BP Pulse Ox 98.5 F 91 16 143/79 100 01/11/17 07:41 01/11/17 07:41 01/11/17 11:18 01/11/17 07:41 01/11/17 07:41 Intake & Output 01/09/17 01/10/17 01/11/17 01/12/17 06:59 06:59 06:59 06:59 Intake Total 1100 5001 1060 Output Total 0 2350 Balance 1100 2651 1060 Weight 150 lb Intake: IV Fluids 1100 4151 1060 LR 2000 NS (0.9%) 1061 IVPB 100 ABX - ZOSYN 100 Oral 0 750 Output: Urine 0 2350 PEX: Comfortable Lungs are clear Abd is soft and non-distended. Incisions are clean and dry, there is some ecchymosis around umbilical incision. Bowel sounds are present. Assessment: POD# 1 s/p lap choly for acute calculous cholecystitis Post-op nausea --suspect anesthesia and narcotics on empty stomach, she other lombardi appears to be doing well from surgical standpoint. Plan: Continue as planned- hopeful d/c after lunch-she would like to go home this afternoon.
--- NOTE | 2017-01-11 15:00 | PN ---
Progress Note - Progress Note Date of Service: 01/11/17 SOAP: Subjective: Feeling much better, tolerated lunch. Denies any nausea or vomiting. Objective: Awake and alert, sitting on her bed, appears comfortable. VSS Abdomen soft, NT, ND. Incisions C/D/I. Mild periumbilical ecchymosis, no tenderness. Assessment: Post-op s/p laparoscopic cholecystectomy, doing well. Plan: D/C IVF D/C to home this afternoon F/U in 1-2 weeks with surgical associates. D/C instructions discussed.
== END 2017-01-11 16:38 | disposition home or self-care (01) ==
LOC: ED 23:21 → SSU 01-10 03:11
PROVIDERS: ADMIT Surgery; ATTEND Surgery
PROC: 0FT44ZZ Resection of Gallbladder, Percutaneous Endoscopic Approach (ICD-10-PCS; principal; 2017-01-10 10:00)
DX: K80.00 Calculus of gallbladder with acute cholecystitis without obstruction (principal); R10.13 Epigastric pain; R10.11 Right upper quadrant pain; K21.9 Gastro-esophageal reflux disease without esophagitis; Z79.899 Other long term (current) drug therapy; Z87.442 Personal history of urinary calculi; Z87.891 Personal history of nicotine dependence
CPT/HCPCS: 36415; 74176; 76705; 80053; 81003; 81015; 81025; 83690; 85025; 87086; 88304; 96365; 96366; 96375; 96376; 99284; A9270-GY; G0378; J0780; J1100; J1885; J2250; J2270; J2405; J2543; J2704; J3010